=== PATIENT | male | born 1980 | race Two or more races ===

== ENCOUNTER 2017-11-03 18:49 | Emergency (ER) | payer MEDICAID ==
[~2017-11-03] VITALS: Ht 185.4 cm; Wt 86.0 kg
[2017-11-03] MEDS ORDERED: IBUPROFEN 600MG TABLET PO ONE (21:30)
[2017-11-03 21:37] VITALS: BP 119/73
== END 2017-11-03 21:40 | disposition home or self-care (01) ==
LOC: ER 20:35
DX: R07.89 Other chest pain (principal); Z72.0 Tobacco use
CPT/HCPCS: 71045; 93005; 99284

== ENCOUNTER 2021-10-18 14:31 | Emergency (ER) | payer MEDICAID, OTHER ==
[~2021-10-18] VITALS: Ht 182.9 cm; Wt 84.0 kg
[2021-10-18 14:46] VITALS: BP 143/78
[2021-10-18 15:56] LABS: BASOPHILS % 0.5 % (0.0-2.0); EOSINOPHILS % 1.2 % (0.0-5.0); HEMOGLOBIN. 14.6 g/dL (14.0-18.0); LYMPHOCYTES % 26.6 % (20.0-50.0); MEAN CORPUSCULAR VOLUME 84.1 fL (80.0-94.0); MEAN PLATELET VOLUME 8.5 fl (7.4-10.4); MONOCYTES % 9.7 % (2.0-8.0); PLATELET 326 x1000/uL (130-400); RED BLOOD CELL COUNT 5.23 mill/uL (4.7-6.1); RED CELL DISTRIBUTION WIDTH 14.3 % (11.6-14.6)
[2021-10-18 16:01] LABS: CHLORIDE 105 mEq/L (98-107)
== END 2021-10-18 16:53 | disposition home or self-care (01) ==
LOC: ER 14:31
DX: F41.9 Anxiety disorder, unspecified (principal); R07.89 Other chest pain; R06.02 Shortness of breath; F12.10 Cannabis abuse, uncomplicated
CPT/HCPCS: 36415; 71045; 80053; 84484; 85025; 93005; 99285

== ENCOUNTER 2022-01-08 22:30 | Emergency (ER) | payer OTHER ==
[~2022-01-08] VITALS: Ht 182.9 cm; Wt 87.0 kg
[2022-01-08 22:33] VITALS: BP 127/83
[2022-01-11] MEDS ORDERED: CEPH500C2 MT (00:23)
[2022-01-11] MEDS ORDERED: IBUP-2029 MT (00:23)
== END 2022-01-09 04:00 | disposition left against medical advice (07) ==
LOC: ER 22:30
DX: Z53.21 Procedure and treatment not carried out due to patient leaving prior to being seen by health care provider (principal); F41.9 Anxiety disorder, unspecified

== ENCOUNTER 2022-02-03 09:17 | Emergency (ER) | payer OTHER ==
[~2022-02-03] VITALS: Ht 177.8 cm; Wt 80.0 kg
[~2022-02-03 09:17] MED LIST: CEPH500C2 MT; IBUP-2029 MT
[2022-02-03] MEDS ORDERED: ACETAMINOPHEN 325MG TABLET PO ONE (11:30)
[2022-02-03] MEDS ORDERED: IBUPROFEN 400MG TABLET PO ONE (11:30)
[2022-02-03] MEDS ORDERED: DIPHENHYDRAMINE 25MG CAPSULE PO ONE (12:00)
[2022-02-03] MEDS ORDERED: EPIN0.3P3 IM (12:10)
[2022-02-03 13:05] VITALS: BP 115/74
== END 2022-02-03 13:18 | disposition home or self-care (01) ==
LOC: ER 09:43
DX: T78.49XA Other allergy, initial encounter (principal); J06.9 Acute upper respiratory infection, unspecified; F41.9 Anxiety disorder, unspecified; F12.10 Cannabis abuse, uncomplicated; Z91.018 Allergy to other foods; X58.XXXA Exposure to other specified factors, initial encounter
CPT/HCPCS: 99284; Q0163

== ENCOUNTER 2022-05-29 08:24 | Emergency (ER) | payer OTHER ==
[~2022-05-29] VITALS: Ht 182.9 cm; Wt 84.0 kg
[~2022-05-29 08:24] MED LIST changes: +EPIN0.3P3 IM
[2022-05-29] MEDS ORDERED: IBUPROFEN 600MG TABLET PO ONE (09:45)
[2022-05-29] MEDS ORDERED: IBUP-2029 MT (11:08)
[2022-05-29 11:47] VITALS: BP 127/86
== END 2022-05-29 11:48 | disposition home or self-care (01) ==
LOC: ER 08:57
DX: S06.0X0A Concussion without loss of consciousness, initial encounter (principal); H93.12 Tinnitus, left ear; M79.10 Myalgia, unspecified site; Z98.890 Other specified postprocedural states; Z91.018 Allergy to other foods; V43.52XA Car driver injured in collision with other type car in traffic accident, initial encounter; Y93.89 Activity, other specified; Y92.488 Other paved roadways as the place of occurrence of the external cause
CPT/HCPCS: 71045; 99284